=== PATIENT | female | born 1975 | race Two or more races ===

== ENCOUNTER 2019-04-15 01:01 | Emergency (ER) | payer MEDICAID, OTHER ==
[~2019-04-15] VITALS: Ht 167.6 cm; Wt 90.7 kg
[~2019-04-15 01:01] MED LIST: ONDA4TAB5 PO
[2019-04-15] MEDS ORDERED: LORAZEPAM INJ 2 MG/ML VIAL IM ONE (01:30)
[2019-04-15] MEDS ORDERED: LORAZEPAM INJ 2 MG/ML VIAL ONE (01:33)
--- NOTE | 2019-04-15 01:47 | NUR ---
BIB SELF C/O CHEST PAIN WITH SOB, FACIAL AND LIP NUMBNESS X3 DAYS, IN BED, NO NOTED DISCOMFORT AT THIS TIME, ORDERS RECEIVD AND CARRIED OUT
--- NOTE | 2019-04-15 01:53 | NUR ---
Patient discharged to home in stable condition. Written and verbal after care instructions given. Patient verbalizes understanding of instruction.
[2019-04-15 01:54] VITALS: BP 159/106
== END 2019-04-15 01:54 | disposition home or self-care (01) ==
LOC: ER 01:03
DX: F41.0 Panic disorder [episodic paroxysmal anxiety] (principal); Z98.890 Other specified postprocedural states
CPT/HCPCS: 93005; 96372; 99284; J2060

== ENCOUNTER 2019-12-09 09:20 | Emergency (ER) | payer MEDICAID ==
[~2019-12-09] VITALS: Ht 165.1 cm; Wt 95.3 kg
--- NOTE | 2019-12-09 09:20 | NUR ---
PT BIB SELF C/O SOB AND COUGH SINCE JULY, PT IS AAOX4, NOT IN RESPIRATORY DISTRESS, HOOKED TO MONITOR, KEPT RESTED AND COMFORTABLE, WILL CONTINUET TO MONITOR.
--- NOTE | 2019-12-09 09:25 | NUR ---
AT BEDSIDE FOR EVAL.
--- NOTE | 2019-12-09 09:35 | NUR ---
IV LINE ESTABLISHED BLOOD DRAWN AND SENT TO LAB.
[2019-12-09 09:42] LABS: BASOPHILS # (AUTO) 0.1 /CMM (0.0-0.2); BASOPHILS % (AUTO) 0.9 % (0.0-2.0); EOSINOPHILS % (AUTO) 3.5 % (0.0-6.0); HEMATOCRIT 38 % (33-45); HEMOGLOBIN 12.3 g/dL (11.5-14.8); LYMPHOCYTES # (AUTO) 1.6 /CMM (0.8-4.8); MEAN CORPUSCULAR HGB CONC 33 g/dl (31.0-36.0); MEAN CORPUSCULAR VOLUME 83 fL (82-100); MONOCYTES # (AUTO) 0.4 /CMM (0.1-1.30); MONOCYTES % (AUTO) 7.2 % (2.0-12.0); NEUTROPHILS # (AUTO) 3.8 /CMM (1.8-8.9); NEUTROPHILS % (AUTO) 62.4 % (43.0-81.0); PLATELET COUNT (AUTO) 382 /CMM (150-450); RED BLOOD CELL COUNT(AUTO) 4.58 MIL/uL (4.0-5.2); WHITE BLOOD COUNT (AUTO) 6.1 K/uL (4.3-11.0)
[2019-12-09 09:49] LABS: CALCIUM, SERUM 8.7 mg/dL (8.5-10.1); CARBON DIOXIDE 25 mmol/L (21-32); CHLORIDE 100 mmol/L (98-107); CREATININE 0.8 mg/dL (0.6-1.3); GLUCOSE 192 mg/dL (74-106); POTASSIUM 4.1 mmol/L (3.5-5.1); SODIUM SERUM 137 mmol/L (136-145); UREA NITROGEN, BLOOD 9 mg/dL (7-18)
--- NOTE | 2019-12-09 09:50 | NUR ---
URINE SPECIMEN COLLECTED AND SENT TO LAB.
[2019-12-09 09:55] LABS: ALANINE AMINOTRANSFERASE 23 U/L (12-78); ALBUMIN 3.8 g/dL (3.4-5.0); ALKALINE PHOSPHATASE 83 U/L (46-116); ASPARTATE AMINOTRANSFERASE 15 U/L (15-37); BILIRUBIN,TOTAL 0.2 mg/dL (0.2-1.0); TOTAL PROTEIN, SERUM 8.6 g/dL (6.4-8.2)
--- NOTE | 2019-12-09 09:57 | NUR ---
RESEARCH NEUROPSYCHOLOGIST AT BEDSIDE FOR XRAY.
[2019-12-09 10:24] VITALS: BP 140/100
--- NOTE | 2019-12-09 10:24 | NUR ---
IV removed. Catheter intact and site benign. Pressure and 4x4 applied to site. No bleeding noted. Patient discharged to home in stable condition. Written and verbal after care instructions given. Patient verbalizes understanding of instruction.
== END 2019-12-09 10:25 | disposition home or self-care (01) ==
LOC: ER 09:23
DX: F41.9 Anxiety disorder, unspecified (principal); R06.02 Shortness of breath; Z98.890 Other specified postprocedural states
CPT/HCPCS: 36415; 71045-TC; 80048-TC; 80076-TC; 84484-TC; 84703-TC; 85025-TC

== ENCOUNTER 2020-12-24 01:11 | Emergency (ER) | payer MEDICAID ==
[~2020-12-24] VITALS: Ht 165.1 cm; Wt 97.5 kg
[2020-12-24 01:20] VITALS: BP 191/116
[2020-12-24] MEDS ORDERED: CARI350T PO (02:08)
[2020-12-24] MEDS ORDERED: IBUP-1957 PO (02:08)
[2020-12-24] MEDS ORDERED: PRED50TA PO (02:08)
[2020-12-24] MEDS ORDERED: DEXAMETHASONE SOD PHOSPHATE 10 MG/ML VIAL ONE (02:12)
[2020-12-24] MEDS ORDERED: CARISOPRODOL 350 MG TABLET ONE (02:12)
[2020-12-24] MEDS ORDERED: KETOROLAC TROMETHAMINE INJ 60 MG/2 ML VIAL IM ONE (02:12)
[2020-12-24] MEDS: KETOROLAC TROMETHAMINE INJ 60 MG/2 ML VIAL IM ONE (02:29)
[2020-12-24] MEDS: DEXAMETHASONE SOD PHOSPHATE 4 MG/ML VIAL IM ONE (02:29)
[2020-12-24] MEDS: CARISOPRODOL 350 MG TABLET PO ONE (02:29)
--- NOTE | 2020-12-24 02:31 | NUR ---
PT is medically stable for d/c. Patient discharged to home in stable condition. Rx and Written and verbal after care instructions given. Patient verbalizes understanding of instruction.
== END 2020-12-24 02:32 | disposition home or self-care (01) ==
LOC: ER 01:11
DX: M62.838 Other muscle spasm (principal); M54.12 Radiculopathy, cervical region; I10 Essential (primary) hypertension; E11.9 Type 2 diabetes mellitus without complications; F41.9 Anxiety disorder, unspecified; Z98.890 Other specified postprocedural states; Z79.899 Other long term (current) drug therapy
CPT/HCPCS: 96372 ×2; 99284; J1100; J1885